=== PATIENT | female | born 1990 | race Asian ===

== ENCOUNTER 2016-09-22 12:31 | Inpatient (IN) | payer OTHER ==
[~2016-09-22] VITALS: Ht 160 cm; Wt 86.6 kg
[~2016-09-22 12:31] MED LIST: MECL25TA3 PO
[2016-09-22] MEDS ORDERED: IV RINGERS,LACTATED 1000ML 1,000 ML IV SCH (13:24)
[2016-09-22] MEDS ORDERED: TERBUTALINE 1 MG/ML VIAL. SQ PRN (13:30)
[2016-09-22] MEDS ORDERED: BUTORPHANOL 2 MG/ML VIAL. IV PRN ×2 (13:30)
[2016-09-22] MEDS ORDERED: MAG HYDROX/ALUMINUM HYD/SIMETH 30 ML ORAL.SUSP PO PRN ×2 (13:30→18:45)
[2016-09-22] MEDS ORDERED: CITRIC ACID/SODIUM CITRATE 30 ML SOLUTION. PO PRN (13:30)
[2016-09-22] MEDS ORDERED: LIDOCAINE 1% PF 30 ML VIAL. INJ PRN (13:30)
[2016-09-22] MEDS ORDERED: IBUPROFEN 600 MG TABLET. PO PRN (13:30)
[2016-09-22] MEDS ORDERED: fentaNYL PF VIAL 100 MCG/2 ML VIAL IV PRN (13:30)
[2016-09-22] MEDS ORDERED: 0.9 % SODIUM CHLORIDE 10 ML DISP.SYRIN. IV PRN ×2 (13:30→18:45)
[2016-09-22] MEDS ORDERED: OXYTOCIN 30 UNIT/500 ML PREMIX 500 ML IV PRN ×3 (13:30→18:45)
[2016-09-22 14:00] VITALS: BP 118/70
[2016-09-22 14:14] LABS: HEMATOCRIT 32.5 % (36.0-47.0); HEMOGLOBIN 10.6 g/dL (12.0-15.5); RED BLOOD COUNT 4.17 x10^6/uL (3.50-5.40); RED CELL DISTRIBUTION WIDTH 15.5 % (11.5-14.5); WHITE BLOOD COUNT 6.9 x10^3/uL (4.0-11.0)
--- NOTE | 2016-09-22 17:51 | PDOC ---
VAGINAL DELIVERY DATE DATE: 09/22/16 TIME 1735 : 4 Para: 3 EDC: Sep 23, 2016 EGA: 39.6 VAGINAL DELIVERY: VTX VACCUM ASSISTED: No PLACENTA: Spontaneous 8/9 SEX: Female WEIGHT Weight 4240g or 9 pounds 6oz Nuchal Cord: No Amniotic Fluid: Clear PAIN: Natural EPISIOTOMY: No EXTENSION: Yes (2nd degree perianal) REPAIRED WITH 3'0" vicryl by Dr. Laura EBCleve 400ml COMPLICATIONS None CONDITION Stable VISCERA WASHER Senior Clinical Research Associate Doc Signs of Intrauterine Infectio: None Shoulder Dystocia: No DIAGNOSIS Pt is a 26yo [id number] s/p precipitous vaginal delivery at 39.6wga with no complications Problems: MELODIE SALDANA MD Sep 22, 2016 17:51
[2016-09-22] MEDS ORDERED: PHENYLEPH/MINERAL OIL/PETROLAT RECTAL OINTMENT 28GM TUBE. RC PRN (18:45)
[2016-09-22] MEDS ORDERED: MAGNESIUM HYDROXIDE 2,400 MG/30 ML ORAL.SUSP. PO PRN (18:45)
[2016-09-22] MEDS ORDERED: diphenhydrAMINE HCL 25 MG CAPSULE PO PRN (18:45)
[2016-09-22] MEDS ORDERED: SIMETHICONE 80 MG TAB.CHEW PO PRN (18:45)
[2016-09-22] MEDS ORDERED: HYDROCORTISONE 1% TOPICAL OINTMENT 30GM TUBE. TP PRN (18:45)
[2016-09-22] MEDS ORDERED: ZOLPIDEM 5 MG TABLET. PO PRN (18:45)
[2016-09-22] MEDS ORDERED: HYDROcodone/APAP 5/325MG 1 TAB TABLET PO PRN (18:45)
[2016-09-22] MEDS ORDERED: BENZOCAINE 20% TOPICAL AEROSOL SPRAY 57GM CAN. TP PRN (18:45)
[2016-09-22] MEDS ORDERED: ACETAMINOPHEN 325 MG TABLET. PO PRN (18:45)
[2016-09-22 20:25] VITALS: BP 110/60
[2016-09-22 21:45] VITALS: BP 120/75
[2016-09-23 01:33] VITALS: BP 111/69
[2016-09-23] MEDS: IBUPROFEN 800 MG TABLET. PO SCH ×2 (06:21→18:19)
[2016-09-23 06:22] VITALS: BP 113/66
--- NOTE | 2016-09-23 06:46 | PDOC ---
Provider Note Provider Note Doing well VSS Uterus NTTP FU in AM ALISSA HUTCHINS MD Sep 23, 2016 06:46
[2016-09-23] MEDS ORDERED: FERROUS SULFATE 325 MG TABLET. PO SCH (08:00)
[2016-09-23 09:30] VITALS: BP 113/66
[2016-09-23 10:24] LABS: RPR REFLEX Non Reactive (Non Reactive)
[2016-09-23 13:31] VITALS: BP 119/71
[2016-09-23 19:04] VITALS: BP 124/81
[2016-09-23 22:58] VITALS: BP 122/79
[2016-09-24 05:00] VITALS: BP 134/71
[2016-09-24 08:10] VITALS: BP 110/71
--- NOTE | 2016-09-24 15:51 | PDOC3 ---
OB DISCHARGE SUMMARY DATE OF ADMISSION: 09/22/16 DATE OF DISCHARGE: 09/24/16 PROCEDURES: Ultrasound INTRAPARTUM PROCEDURES: Spontanous Vag Deliv PROCEDURES: None OPERATIONS: None DISCHARGE DIAGNOSIS: Term Delivered DISCHARGE INFORMATION: Activity, Diet HOSPITAL COURSE Unremarkable CONDITION AT DISCHARGE Stable ALISSA HUTCHINS MD Sep 24, 2016 15:51
[2016-09-24] MEDS ORDERED: NAPR500T3 PO (15:53)
[2016-09-24] MEDS ORDERED: HYDR-971 PO (15:53)
[2016-09-24 16:45] VITALS: BP 125/76
== END 2016-09-24 16:45 | disposition home or self-care (01) | DRG 775 ==
LOC: 3 SO LND 12:31 → 3 NORTH 20:25
PROVIDERS: ADMIT Specialist; ATTEND Specialist
PROC: 10E0XZZ Delivery of Products of Conception, External Approach (ICD-10-PCS; principal; 2016-09-24)
PROC: 0KQM0ZZ Repair Perineum Muscle, Open Approach (ICD-10-PCS; 2016-09-24)
DX: O62.3 Precipitate labor (principal); Z3A.39 39 weeks gestation of pregnancy; Z37.0 Single live birth; O70.1 Second degree perineal laceration during delivery
CPT/HCPCS: 36415; 85014; 85027; 86593; 86850; 86900; 86901; J2590; J7120

== ENCOUNTER 2018-12-27 18:27 | Emergency (ER) | payer OTHER ==
[~2018-12-27] VITALS: Ht 162.6 cm; Wt 86.6 kg
[~2018-12-27 18:27] MED LIST changes: +HYDR-3164 PO; +NAPR-514 PO
[2018-12-27] MEDS ORDERED: IV NORMAL SALINE 1000ML BAG 1,000 ML IV ONE (19:30)
[2018-12-27 19:50] LABS: BILIRUBIN,URINE NEGATIVE (NEG); CLARITY,URINE CLEAR; COLOR,URINE YELLOW; NITRITE,URINE NEGATIVE (NEG); PH,URINE 5.5; PROTEIN,URINE NEGATIVE (NEG-TRACE); UROBILINOGEN,URINE 0.2 mg/dL (0.2 mg/dL)
[2018-12-27 19:54] LABS: BACTERIA,URINE FEW /HPF (0-FEW); SQUAMOUS EPITHELIAL CELL,UR MOD /LPF
[2018-12-27 20:18] LABS: BASO % 1 % (0-3); EOS # 0.3 x10^3/uL (0.0-0.7); EOS % 3 % (0-3); HEMATOCRIT 33.2 % (36.0-47.0); HEMOGLOBIN 11.5 g/dL (12.0-15.5); LYMPH # 1.9 x10^3/uL (1.0-4.8); LYMPH % 23 % (24-48); MEAN CORPUSCULAR HEMOGLOBIN 29 pg (25-35); MEAN CORPUSCULAR HGB CONC 35 g/dL (31-37); MEAN CORPUSCULAR VOLUME 83 fL (79-100); MONO # 0.4 x10^3/uL (0.0-1.1); MONO % 5 % (0-9); NEUT # 5.6 x10^3/uL (1.8-7.7); NEUT % 69 % (31-73); PLATELET COUNT 181 x10^3/uL (140-400); RED BLOOD COUNT 3.98 x10^6/uL (3.50-5.40); RED CELL DISTRIBUTION WIDTH 14.1 % (11.5-14.5); WHITE BLOOD COUNT 8.2 x10^3/uL (4.0-11.0)
[2018-12-27 20:29] LABS: CALCIUM 8.8 mg/dL (8.5-10.1); CREATININE 0.7 mg/dL (0.6-1.0); GFR 98.3; POTASSIUM 3.3 mmol/L (3.5-5.1)
[2018-12-27 20:34] LABS: ALBUMIN 3.3 g/dL (3.4-5.0); ALBUMIN/GLOBULIN RATIO 0.8 (1.0-1.7); MAGNESIUM 1.6 mg/dL (1.8-2.4); TOTAL BILIRUBIN 0.2 mg/dL (0.2-1.0); TOTAL PROTEIN 7.7 g/dL (6.4-8.2)
--- NOTE | 2018-12-27 20:49 | PHYS DOC ---
Past Medical History Past Medical History: No Pertinent History Past Surgical History: No Surgical History Alcohol Use: None Drug Use: None Adult General Chief Complaint Chief Complaint: VAGINAL BLEEDING HPI HPI Patient is a 28 year old 12 weeks female who presents with vaginal bleed and abdominal pain. Pt reports the sharp abdominal pain started suddenly while she tried to stand up from a sitting position at 1:30 pm today. She also has vaginal bleeding with an estimate about a pad. Pt denies any bleeding at the time of examination. Her previous OB visit back in October was unremarkable. Denies any F/C, N/V, chest pain, palpitation or UTI symptoms. Pt speaks Hak[place] chin ([place]) and stranner was used to obtain history. Review of Systems Review of Systems Constitutional: Denies fever or chills Eyes: Denies redness or eye pain HENT: Denies nasal congestion or sore throat Respiratory: Denies cough or shortness of breath Cardiovascular: Denies chest pain or palpitations GI: Positive abdominal pain. No nausea, or vomiting : Denies dysuria or hematuria Musculoskeletal: Denies back pain or joint pain. Integument: Denies rash or skin lesions. Neurologic: Denies headache, focal weakness or sensory changes Complete systems were reviewed and found to be within normal limits, except as documented in this note. Current Medications Current Medications Current Medications Medications (Trade) Dose Ordered Sig/[place] Start Time Stop Time Status Last Admin Dose Admin Magnesium Chloride (Mag Delay) 64 mg 1X ONCE 12/27/18 23:15 12/27/18 23:16 DC Potassium Chloride (Klor-Con) 40 meq 1X ONCE 12/27/18 23:15 12/27/18 23:16 DC Sodium Chloride 1,000 ml @ 1,000 mls/hr 1X ONCE 12/27/18 19:30 12/27/18 20:29 DC 12/27/18 20:20 1,000 MLS/HR Allergies Allergies Allergies Coded Allergies Type Severity Reaction Last Updated Verified No Known Drug Allergies 05/03/16 No Physical Exam Physical Exam Constitutional: Well developed, well nourished, no acute distress, non-toxic appearance HENT: Normocephalic, atraumatic, oropharynx moist Eyes: PERRL, EOMI, conjunctiva normal, no discharge Neck: Normal range of motion, no tenderness, supple Cardiovascular: Heart rate normal, regular rhythm Lungs & Thorax: Bilateral breath sounds clear to auscultation, no wheezing Abdomen: Soft, LLQ tenderness. Skin: Warm, dry, no erythema, no rash Back: No tenderness, no CVA tenderness Extremities: No tenderness, ROM intact, no edema Neurologic: Alert and oriented X 3, normal motor function, normal sensory function, no focal deficits noted Psychologic: Affect normal, judgement normal, mood normal Current Patient Data Vital Signs Vital Signs Date Time Temp Pulse Resp B/P (MAP) Pulse Ox O2 Delivery O2 Flow Rate FiO2 12/27/18 21:44 91 20 148/78 (101) 98 Room Air 12/27/18 19:45 98.9 98.9 Lab Values Laboratory Tests Test 12/27/18 19:30 12/27/18 19:44 12/27/18 20:10 Urine Collection Type Unknown Urine Color Yellow Urine Clarity Clear Urine pH 5.5 Urine Specific [place] 1.020 Urine Protein Negative mg/dL (NEG-TRACE) Urine Glucose (UA) 100 mg/dL (NEG) Urine Ketones (Stick) Negative mg/dL (NEG) Urine Blood Large (NEG) Urine Nitrite Negative (NEG) Urine Bilirubin Negative (NEG) Urine Urobilinogen Dipstick 0.2 mg/dL (0.2 mg/dL) Urine Leukocyte Esterase Negative (NEG) Urine RBC 11-20 /HPF (0-2) Urine WBC 1-4 /HPF (0-4) Urine Squamous Epithelial Cells Mod /LPF Urine Bacteria Few /HPF (0-FEW) Urine Mucus Mod /LPF POC Urine HCG, Qualitative Hcg positive (Negative) White Blood Count 8.2 x10^3/uL (4.0-11.0) Red Blood Count 3.98 x10^6/uL (3.50-5.40) Hemoglobin 11.5 g/dL (12.0-15.5) L Hematocrit 33.2 % (36.0-47.0) L Mean Corpuscular Volume 83 fL (79-100) Mean Corpuscular Hemoglobin 29 pg (25-35) Mean Corpuscular Hemoglobin Concent 35 g/dL (31-37) Red Cell Distribution Width 14.1 % (11.5-14.5) Platelet Count 181 x10^3/uL (140-400) Neutrophils (%) (Auto) 69 % (31-73) Lymphocytes (%) (Auto) 23 % (24-48) L Monocytes (%) (Auto) 5 % (0-9) Eosinophils (%) (Auto) 3 % (0-3) Basophils (%) (Auto) 1 % (0-3) Neutrophils # (Auto) 5.6 x10^3/uL (1.8-7.7) Lymphocytes # (Auto) 1.9 x10^3/uL (1.0-4.8) Monocytes # (Auto) 0.4 x10^3/uL (0.0-1.1) Eosinophils # (Auto) 0.3 x10^3/uL (0.0-0.7) Basophils # (Auto) 0.0 x10^3/uL (0.0-0.2) Maternal Serum HCG Beta Subunit 23976 mIU/mL (0-5) H Sodium Level 139 mmol/L (136-145) Potassium Level 3.3 mmol/L (3.5-5.1) L Chloride Level 104 mmol/L (98-107) Carbon Dioxide Level 23 mmol/L (21-32) Anion Gap 12 (6-14) Blood Urea Nitrogen 8 mg/dL (7-20) Creatinine 0.7 mg/dL (0.6-1.0) Estimated GFR (Cockcroft-Gault) 98.3 BUN/Creatinine Ratio 11 (6-20) Glucose Level 104 mg/dL (70-99) H Calcium Level 8.8 mg/dL (8.5-10.1) Magnesium Level 1.6 mg/dL (1.8-2.4) L Total Bilirubin 0.2 mg/dL (0.2-1.0) Aspartate Amino Transferase (AST) 16 U/L (15-37) Alanine Aminotransferase (ALT) 20 U/L (14-59) Alkaline Phosphatase 53 U/L (46-116) Total Protein 7.7 g/dL (6.4-8.2) Albumin 3.3 g/dL (3.4-5.0) L Albumin/Globulin Ratio 0.8 (1.0-1.7) L Laboratory Tests 12/27/18 20:10 Laboratory Tests 12/27/18 20:10 Microbiology 12/27/18 Wet Prep - Final, Complete EKG EKG [] Radiology/Procedures Radiology/Procedures [] Course & Med Decision Making Course & Med Decision Making Pertinent Labs and Imaging studies reviewed. (See chart for details) [] Dragon Disclaimer Dragon Disclaimer This electronic medical record was generated, in whole or in part, using a voice recognition dictation system. Departure Departure Impression: Primary Impression: Threatened miscarriage Additional Impressions: Hypomagnesemia Hypokalemia Disposition: HOME, SELF-CARE Condition: STABLE Referrals: NO PCP (PCP) Patient Instructions: Hypokalemia-Brief, Hypomagnesemia, Potassium Content of Foods, Threatened Miscarriage, [id number] Problem Qualifiers FLAQUITO KOTHARI DO Dec 27, 2018 20:49
--- NOTE | 2018-12-27 21:54 | RAD ---
Study: Obstetrical ultrasound less than 14 weeks INDICATION: Vaginal bleeding. COMPARISON: None. TECHNIQUE: Real-time grayscale and color Doppler sonographic evaluation of the pelvis utilizing transabdominal technique. FINDINGS: The uterus measures intrauterine gestational sac containing a single pole with a measured crown-rump length of 7.34 cm corresponding to an estimated gestational age of 13 weeks 3 days. heart rate of 173 bpm. The cervix measures 5 cm in length and is closed. The right ovary measures 3.1 x 2.8 x 2.2 cm. The left ovary measures 2.9 x 2.2 x 2.0 cm. Normal Doppler flow is maintained to both ovaries. No free fluid within the cul-de-sac. In the region of the uterine fundus adjacent to the margin of the placenta is a heterogeneous cystic focus measuring 1.6 x 1.4 x 2.3 cm. IMPRESSION: 1. Single live intrauterine with a measured crown-rump length corresponding to an estimated gestational age of 13 weeks 3 days. 2. Unremarkable right and left ovaries with normal Doppler flow. 3. In the uterine fundal region adjacent to the placental edge is a heterogeneously hypoechoic cystic focus that measures 1.6 x 1.4 x 2.3 cm. The appearance is nonspecific but could represent a small perigestational hemorrhage. If there is ongoing concern, follow-up sonography in 7-14 days could be considered to document stability or resolution. Electronically signed by: LUIS MANUEL ESPINOSA MD (12/27/2018 9:51 PM) [facility]
[2018-12-27] MEDS ORDERED: POTASSIUM CHLORIDE 20 MEQ TABLET.ER. PO ONE (23:15)
[2018-12-27] MEDS ORDERED: MAGNESIUM CHLORIDE ER 64 MG TABLET.ER PO ONE (23:15)
[2018-12-27 23:40] VITALS: BP 147/72
[2018-12-31 18:13] LABS: GC PROBE Negative (Negative)
== END 2018-12-27 23:44 | disposition home or self-care (01) ==
LOC: ER 18:27
DX: O20.0 Threatened abortion (principal); O99.281 Endocrine, nutritional and metabolic diseases complicating pregnancy, first trimester; E83.42 Hypomagnesemia; E87.6 Hypokalemia; Z3A.13 13 weeks gestation of pregnancy
CPT/HCPCS: 36415; 76801; 80053; 81001; 81025; 83735; 84702; 85025; 86900; 86901; 87491; 87591; 99285; J7030; Q0111

== ENCOUNTER → 2019-11-06 | Outpatient (CLI) | payer OTHER ==
[2019-07-05 21:20] VITALS: BP 135/81
[~2019-11-06] MED LIST changes: +DOCU-109 PO; +FERR325T14 PO; +IBUP-1060 PO; +MECL-75 PO; -MECL25TA3 PO
== END | disposition home or self-care (01) ==
LOC: SPEC 16:39
PROVIDERS: ATTEND Obstetrics & Gynecology
DX: N89.8 Other specified noninflammatory disorders of vagina (principal)
CPT/HCPCS: Q0111